=== PATIENT | male | born 1960 | race Caucasian/White ===

== ENCOUNTER → 2016-09-23 | Outpatient (CLI) | payer BC ==
[~2016-09-23] MED LIST: CELEXA20 MG PO; CLARITIN-D1 TAB 24 H PO; DURAGESIC100 MCG TD; EFFEXOR-XR150 MG PO; ESOMEPRAZOLE MA40 MG PO; FERROUS GL324 ( 36 ) PO; FERROUS GLUCON324 MG PO; HEMOCYTE324 MG PO; LAMICTAL25 MG PO; MEDROL PO; MEN'S ONE DAILY1 TA1 PO; MOBIC15 MG PO; MULTI-VITAMIN1 EAC1 PO; MULTIPLE VITAMI1 T13 PO; NEURONTIN300 MG PO; NEXIUM PO; OXYCODON HCL-1 UDTAB PO; OXYCODONE15 M1 PO; OXYCONTIN40 MG PO; PERCOCET 10/3251 TAB PO; SLEEPING PILL PO; SLEEPING TABLET25 M1; TYLENOL PM EX-S1 TA4 PO; VENLAFAXINE HC225 MG PO; VITAMIN C500 M5 PO
--- NOTE | ~2016-09-23 | MR17 ---
[facility] Service of [facility] & [facility] RADIOLOGY TEXT RESULTS PATIENT: THOR MORALES LOCATION: [facility] : 64 UNIT #: [id number] AGE: [address]: Inés Gomez MD SEX: M ORDER DR: [id number] [address] [address] [id number] O MR#: [id number] Acc #: [id number] NAME: THOR MORALES : 1960 SEX: M STUDY DATE/TIME: 09/23/2016 9:33 UNIT: [facility] ROOM: STUDY DESCRIPTION: MR Brain WWo Contrast Attending Physician: Inés Gomez M.D. Referring Physician: Inés Gomez M.D. Ordering Physician: Inés Gomez M.D. Primary Care Physician: Inés Gomez M.D. MRI CENTER REPORT This report is preliminary unless electronic signature is present. EXAM MRI of the brain, pituitary, with and without HISTORY Low testosterone and other hormones with diminished libido and increased fatigue for 10 years, gradually getting worse this year. COMMENTS MRI of the brain performed prior to and following intravenous administration of 20 mL of MultiHance. There is also a higher resolution pre- and postcontrast imaging of the pituitary gland, and this includes dynamic coronal T1-weighted imaging during contrast administration. There is no previous. Evaluation of the sella shows a fairly normal-appearing posterior pituitary bright spot. The upper margin of the gland is concave. The infundibulum is not deviated. The signal characteristics and enhancement pattern are mildly heterogeneous, but there is no definite focal mass. The patient has a large pineal region cystic mass. It measures about 1.7 cm AP dimension x 0.9 cm SI dimension x 1.3 cm ML dimension. It appears to be a simple cyst, but given its size, it should be followed over the long-term. There is no hydrocephalus or significant mass effect on the cerebral aqueduct at this time. Assessment of the remainder of the brain shows no evidence for a recent ischemic insult on the diffusion series. Relatively minor white matter signal abnormality is seen within the range expected for age group and probably related to small vessel disease. There is no extraaxial fluid collection. Ventricles are normal in size and configuration. Major intracranial flow voids are maintained. The mastoid air cells are clear [facility] A Service of [facility] RADIOLOGY TEXT RESULTS PATIENT: TH[facility] MORALES [id number] 64 UNIT #: [id number] AGE: [address]: Inés Gomez MD SEX: M ORDER DR: where visualized. There is mild paranasal sinus mucosal disease with some partial opacification of the right anterior ethmoid air cells. No definite sinus air-fluid level. Postcontrast imaging of the whole brain shows no additional possible pathologic intracranial enhancement. IMPRESSION 1. The pituitary gland is relatively small with a concave upper margin. The signal characteristics and enhancement characteristics are mildly heterogeneous, but there is no convincing evidence for a focal mass. The infundibulum is not deviated. 2. Patient has a large pineal region cyst. It is probably a simple cyst, but because of its size, it should be followed over the long-term. I would recommend the first followup study in 6 months with a brain MRI with and without contrast. On current exam, it measures about 1.7 x 0.9 x 1.3 cm dimension. 3. Minor white matter signal abnormality essentially within the range of normal for age group, probably due to small vessel disease. 4. Mild paranasal sinus disease. Dictated by... Ani Robles M.D. THIS IS AN ELECTRONICALLY VERIFIED REPORT Ani Robles M.D. at 09/23/2016 8:27 PM Tim TD: 09/23/2016 19:21 JOB #: [id number] MRI CENTER REPORT Page 1 of 1
== END | disposition home or self-care (01) ==
LOC: SMRI 09:00
DX: E29.1 Testicular hypofunction (principal); E34.8 Other specified endocrine disorders; J32.9 Chronic sinusitis, unspecified
CPT/HCPCS: 70553; A9581